=== PATIENT | female | born 1990 | race Two or more races ===

== ENCOUNTER 2019-04-06 10:50 | Emergency (ER) | payer OTHER ==
[~2019-04-06] VITALS: Ht 167.6 cm; Wt 60.0 kg
[2019-04-06 13:37] LABS: HEMATOCRIT 41.8 % (36.0-48.0); HEMOGLOBIN 14.1 g/dL (12.0-16.0); MEAN CORPUSCULAR HEMOGLOBIN 31.9 pg (28.0-32.0); MEAN CORPUSCULAR VOLUME 94.1 fL (81.0-99.0); PLATELET 249 x1000/uL (130-400); RED BLOOD CELL COUNT 4.44 mill/uL (4.2-5.4); RED CELL DISTRIBUTION WIDTH 14.3 % (11.6-14.6)
[2019-04-06 15:46] LABS: CLARITY URINE CLEAR (CLEAR); COLOR URINE YELLOW (YELLOW); KETONES URINE NEGATIVE (NEGATIVE); LEUKOCYTE ESTERASE URINE NEGATIVE (NEGATIVE); NITRITE URINE NEGATIVE (NEGATIVE); OCCULT BLOOD URINE 3+ (NEGATIVE); PH URINE 6.5 (4.5-8.0); PROTEIN URINE NEGATIVE (NEGATIVE); SPECIFIC GRAVITY URINE 1.001 (1.005-1.030); UROBILINOGEN URINE 0.2 E.U./dL (0.2-1.0)
[2019-04-06] MEDS ORDERED: IBUPROFEN 600MG TABLET PO ONE (18:00)
[2019-04-06] MEDS ORDERED: CEFTRIAXONE SODIUM 1 G/VIAL IM ONE (18:00)
[2019-04-06] MEDS ORDERED: LIDOCAINE HCL 1% 20ML VIAL (Pyxis) INJ INFIL ONE (18:00)
[2019-04-06 18:09] VITALS: BP 118/76
[2019-04-09 04:08] LABS: CHLAMYDIA TRACHOMATIS NAA Negative (Negative); NEISSERIA GONORRHOEAE NAA Negative (Negative)
== END 2019-04-06 18:56 | disposition home or self-care (01) ==
LOC: ER 10:50
DX: N93.9 Abnormal uterine and vaginal bleeding, unspecified (principal)
CPT/HCPCS: 36415; 76830; 76856; 81003; 81025; 85027; 87210; 87491; 87591; 96372; 99284; J0696; J3490